=== PATIENT | male | born 1985 | race Caucasian/White ===

== ENCOUNTER 2021-12-28 14:43 | Observation (INO) | payer OTHER ==
[2021-12-28 15:12] LABS: Basophils # (A) 0.1 k/uL (0-0.2); Basophils % (A) 1 %; Eosinophils # (A) 0.2 k/uL (0-0.7); Eosinophils % (A) 2 %; HCT 44.2 % (39.0-53.0); HGB 15.2 gm/dL (13.0-17.5); Lymphocytes # (A) 2.2 k/uL (1.0-4.8); Lymphocytes % (A) 22 %; MCH 31.2 pg (25.0-35.0); MCHC 34.4 g/dL (31.0-37.0); MCV 90.7 fL (80.0-100.0); Mean Platelet Volume 8.5; Monocytes # (A) 0.3 k/uL (0-1.0); Monocytes % (A) 3 %; Neutrophils # (A) 6.9 k/uL (1.3-7.7); Neutrophils % (A) 71 %; Platelet Count 232 k/uL (150-450); RBC 4.88 m/uL (4.30-5.90); RDW 12.1 % (11.5-15.5); WBC 9.8 k/uL (3.8-10.6)
[2021-12-28 15:21] LABS: AST 43 U/L (17-59); African American GFR (CKD) >90 (>60 ml/min/1.73 sqM); Albumin 4.5 g/dL (3.5-5.0); Alkaline Phosphatase 64 U/L (38-126); Anion Gap 10 mmol/L; Blood Urea Nitrogen 10 mg/dL (9-20); Calcium 9.2 mg/dL (8.4-10.2); Carbon Dioxide 20 mmol/L (22-30); Chloride 101 mmol/L (98-107); Glucose 450 mg/dL (74-99); Non-African American GFR(CKD) >90 (>60 ml/min/1.73 sqM); Sodium 131 mmol/L (137-145); Total Bilirubin 1.5 mg/dL (0.2-1.3); Total Protein 7.1 g/dL (6.3-8.2)
[2021-12-28 15:27] LABS: ALT 34 U/L (4-49)
[2021-12-28 15:33] LABS: Partial Thromboplastin Time 22.1 sec (22.0-30.0); Prothrombin Time 10.6 sec (9.0-12.0)
[2021-12-28 15:35] LABS: Potassium 4.7 mmol/L (3.5-5.1)
--- NOTE | 2021-12-28 15:55 | XR ---
EXAMINATION TYPE: XR chest 2V DATE OF EXAM: 12/28/2021 COMPARISON: None HISTORY: 36-year-old male with chest pain TECHNIQUE: PA and lateral views FINDINGS: Heart normal size. Aorta and pulmonary vasculature within normal limits. Some strandy atelectasis at the left base. No consolidation or pleural effusion. IMPRESSION: No acute cardiopulmonary process.
[2021-12-28] MEDS ORDERED: MORPHINE SULFATE 4 MG/ML SYRINGE IVP STA (16:19)
[2021-12-28] MEDS ORDERED: SODIUM CHLORIDE 0.9% 1,000 ML IV ONE (16:39)
--- NOTE | 2021-12-28 17:13 | ED ---
Chest Pain HPI - General Chief Complaint: Chest Pain Stated Complaint: Chest pain Time Seen by Provider: 12/28/21 15:04 Source: patient, EMS Mode of arrival: EMS Limitations: no limitations - History of Present Illness Initial Comments: Patient is a 36-year-old male presenting with chief complaint of chest pain. Patient states symptoms started this afternoon, he was experiencing substernal chest pain as if someone was sitting on his chest, with some radiation of the neck and down the arm. He admits to nausea. 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 Patient states that since May he has not followed up with his beater engineer helper and has been noncompliant with his medications. Patient states he quit smoking a year ago. He has intermittent shortness of breath. Admits to headache. Denies fever, chills, cough, recent illness, abdominal pain. - Related Data Home Medications Medication Instructions Recorded Confirmed No Known Home Medications 12/28/21 12/28/21 Allergies Allergy/AdvReac Type Severity Reaction Status Date / Time No Known Allergies Allergy Verified 12/28/21 17:42 Review of Systems ROS Statement: Those systems with pertinent positive or pertinent negative responses have been documented in the HPI. ROS Other: All systems not noted in ROS Statement are negative. EKG Findings - EKG Comments: EKG Findings:: Sinus rhythm rate of 88. OK interval 156. QRS duration 87. Some repolarization disturbance is in leads II and III. no previous EKG for comparison. This EKG was promptly shown to and interpreted by my attending Dr. Venegas. Past Medical History Past Medical History: Myocardial Infarction ([place]), Osteoarthritis ([place]) Additional Past Medical History / Comment(s): DDD, History of Any Multi-Drug Resistant Organisms: None Reported Past Surgical History: Heart Catheterization With Stent Past Psychological History: No Psychological Hx Reported Smoking Status: Former smoker Past Alcohol Use History: Occasional Past Drug Use History: Marijuana General Exam Limitations: no limitations General appearance: alert, in no apparent distress Head exam: Present: atraumatic, normocephalic, normal inspection Eye exam: Present: normal appearance, EOMI. Absent: scleral icterus Neck exam: Present: normal inspection Respiratory exam: Present: normal lung sounds bilaterally. Absent: respiratory distress, wheezes, rales, rhonchi, stridor Cardiovascular Exam: Present: regular rate, normal rhythm, normal heart sounds. Absent: systolic murmur, diastolic murmur, rubs, gallop, clicks Neurological exam: Present: alert, oriented X3, CN II-XII intact Psychiatric exam: Present: normal affect, normal mood Skin exam: Present: warm, dry, intact, normal color. Absent: rash Course Vital Signs 12/28/21 12/28/21 12/28/21 14:51 15:35 17:21 Temperature 98.1 F Pulse Rate 86 97 78 Respiratory 18 18 18 Rate Blood Pressure 152/87 117/81 126/80 O2 Sat by Pulse 99 97 98 Oximetry Chest Pain [facility] Patient is a 36-year-old male presenting with chief complaint of chest pain that started today. He has history of 3 prior MIs and 5 stents placed. Pain is substernal, some radiation of the neck and down the arm, associated with nausea, vomiting, headache. Physical examination is unremarkable. Heart and lungs are clear to auscultation and no focal neurological deficits. Lab work shows sodium 131, glucose 450, and troponin is wnl. chest x-ray is negative for any acute process. On blood glucose recheck value is 233, patient is given 3 units of regular insulin. Urine is still pending at this time. Patient responded well to pain medication and Zofran. Given the patient's history and the nature of his pain, he'll be admitted for observation and repeat troponins. Cardiology will be consulted. I spoke with Dr. Bruner from [facility] who agreed to admit the patient. Patient was agreeable to this plan. I discussed this case with my attending Dr. Munguia. Disposition Clinical Impression: Chest pain Disposition: ADMITTED IP TO THIS [facility] Condition: Fair Time of Disposition: 17:13 Decision to Admit Reason: Admit from Decision Date: 12/28/21 Decision Time: 17:13
[2021-12-28] MEDS ORDERED: ONDANSETRON 4 MG/2 ML VIAL IVP STA (17:16)
[2021-12-28] MEDS ORDERED: NALOXONE 0.4 MG/ML 1 ML VIAL IV PRN (17:39)
[2021-12-28] MEDS ORDERED: MORPHINE SULFATE 4 MG/ML SYRINGE IV PRN (17:39)
[2021-12-28] MEDS ORDERED: ONDANSETRON 4 MG/2 ML VIAL IVP PRN (17:39)
[2021-12-28] MEDS ORDERED: INSULIN REGULAR 100 UNIT/ML VIAL (IV) IV ONE ×2 (17:57→18:11)
[2021-12-28 18:10] LABS: Glucose,Whole Blood 233 mg/dL (70-110)
[2021-12-28] MEDS: SODIUM CHLORIDE 0.9% 1,000 ML IV SCH (18:13)
[2021-12-28 19:18] LABS: Appearance,Urine Clear (Clear); Bilirubin,Urine Negative (Negative); Blood,Urine Negative (Negative); Color,Urine Light Yellow; Glucose,Urine (UA) 4+ (Negative); Ketones,Urine 1+ (Negative); Leukocyte Esterase,Urine Negative (Negative); Nitrite,Urine Negative (Negative); Protein,Urine Negative (Negative); Specific Gravity,Urine 1.039 (1.001-1.035); Urobilinogen,Urine <2.0 mg/dL (<2.0)
[2021-12-28] MEDS: KETOROLAC 15 MG/ML 1 ML VIAL IVP SCH (20:05)
[2021-12-28 20:23] LABS: Glucose,Whole Blood 362 mg/dL (70-110)
[2021-12-28 22:52] LABS: Glucose,Whole Blood 291 mg/dL (70-110)
[2021-12-28] MEDS: INSULIN ASPART (NovoLOG) 100 UNIT/ML VIAL SQ SCH (22:55)
--- NOTE | 2021-12-29 01:56 | P.HPIM ---
History of Present Illness H&P Date: 12/28/21 Chief Complaint: Chest pain 36-year-old male with coronary artery disease status post multiple stents Patient comes in complaining of retrosternal chest pain radiating to the left arm described it as pressure-like 10 out of 10 in severity started while he was working. 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 He suddenly had this chest pressure associated with feeling nauseous and dizzy and profusely sweating with headaches and shortness of breath. He immediately recognized the symptoms and decided to come in for evaluation as he had several heart attacks in the past requiring multiple stents. He recently moved from [facility] to [place] on about 7 months ago since then he has lost follow-up with his doctors and has not been able to get refills on his medications he has been taking nothing he's been told in the past that he has prediabetes however he is currently not taking any Plavix or aspirin this most recent stents has been over a 1 year ago. He currently feels comfortable and relaxed laying down in bed denies any chest pain or trouble breathing he also seems to be diabetic from his blood test as his blood sugar is higher than 200 however patient is not ready to commit to a diet of consistent carbohydrate. He has quit smoking over a year ago and denies any heavy alcohol or illicit d rugs. In the ED EKG showed normal sinus rhythm and chest x-ray showed no acute pathology EKG showed no acute ST changes Blood work overall unremarkable troponins negative Patient denies any similar episodes recently he reports that he tolerates his pre-while with no limitations due to dyspnea or chest pain Review of Systems Pertinent positives as noted in HPI. All other systems were reviewed and are negative Past Medical History Past Medical History: Myocardial Infarction ([place]), Osteoarthritis ([place]) Additional Past Medical History / Comment(s): DDD, History of Any Multi-Drug Resistant Organisms: None Reported Past Surgical History: Heart Catheterization With Stent Past Psychological History: No Psychological Hx Reported Smoking Status: Former smoker Past Alcohol Use History: Occasional Past Drug Use History: Marijuana - Past Family History Family Family Medical History: No Reported History Medications and Allergies Home Medications Medication Instructions Recorded Confirmed Type No Known Home Medications 12/28/21 12/28/21 History Allergies Allergy/AdvReac Type Severity Reaction Status Date / Time No Known Allergies Allergy Verified 12/28/21 17:42 Physical Exam Vitals: Vital Signs Temp Pulse Pulse Resp BP BP Pulse Ox 12/28/21 18:56 97.5 F L 67 16 137/84 100 12/28/21 17:21 78 18 126/80 98 12/28/21 15:35 97 18 117/81 97 12/28/21 14:51 98.1 F 86 18 152/87 99 Intake and Output 12/28/21 12/28/21 12/28/21 06:59 14:59 22:59 Other: Weight 99.337 kg Constitutional: No acute distress, conversant, pleasant Eyes: Anicteric sclerae, moist conjunctiva, Pupils equal round reactive to light ENMT: NC/AT Oropharynx clear, no erythema, or exudates Neck: Supple, FROM, no masses, or JVD No carotid bruits No thyromegaly Lungs: Clear to auscultation Clear to percussion Normal respiratory effort, no accessory muscle use Cardiovascular: Heart regular in rate and rhythm, No murmurs, gallops, or rubs No peripheral edema Abdominal: Soft Nontender, no guarding, rebound or rigidity Abdomen moving with respiration Normoactive bowel sounds No hepatomegaly, No splenomegaly No palpable mass No abdominal wall hernia noted Skin: Normal temperature, tone, texture, turgor No induration No subcutaneous nodules No rash, lesions No ulcers Extremities: No digital cyanosis No clubbing Pedal pulses intact and symmetrical Radial pulses intact and symmetrical No calf tenderness Psychiatric: Alert and oriented to person, place and time Appropriate affect fair judgement Neuro Muscles Strength 5/5 in all 4 extremities Sensation to light touch grossly present throughout Cranial nerves II-XII grossly intact No focal sensory deficits Lymphatics: no palpable cervical or supraclavicular , or inguinal lymph nodes Results CBC & Chem 7: 12/28/21 15:04 12/28/21 15:04 Labs: Abnormal Lab Results - Last 24 Hours (Table) 12/28/21 12/28/21 12/28/21 Range/Units 15:04 18:09 18:18 Sodium 131 L (137-145) mmol/L Carbon Dioxide 20 L (22-30) mmol/L Creatinine 0.55 L (0.66-1.25) mg/dL Glucose 450 H (74-99) mg/dL POC Glucose (mg/dL) 233 H (70-110) mg/dL Total Bilirubin 1.5 H (0.2-1.3) mg/dL Ur Specific [place] 1.039 H (1.001-1.035) Urine Glucose (UA) 4+ H (Negative) Urine Ketones 1+ H (Negative) 12/28/21 Range/Units 20:22 Sodium (137-145) mmol/L Carbon Dioxide (22-30) mmol/L Creatinine (0.66-1.25) mg/dL Glucose (74-99) mg/dL POC Glucose (mg/dL) 362 H (70-110) mg/dL Total Bilirubin (0.2-1.3) mg/dL Ur Specific [place] (1.001-1.035) Urine Glucose (UA) (Negative) Urine Ketones (Negative) Assessment and Plan Assessment: atypical chest pain rule out ACS EKG no acute changes CXR no acute pathology trops negative X2 quality assurance monitor monitor vital signs ASA, statin cardiology consult A1c, lipid panel , TSH pain control Newly diagnosed diabetes Follow-up A1c Initiate insulin sliding scale Patient educated regarding consistent carbohydrate diet DVT prophylaxis heparin subcu 3 times a day Full code Anticipated length of stay less than 2 midnights
[2021-12-29] MEDS: KETOROLAC 15 MG/ML 1 ML VIAL IVP SCH ×5 (02:00→23:15)
[2021-12-29] MEDS: SODIUM CHLORIDE 0.9% 1,000 ML IV SCH ×5 (04:27→23:11)
[2021-12-29 07:13] LABS: Glucose,Whole Blood 251 mg/dL (70-110)
[2021-12-29] MEDS ORDERED: INSULIN ASPART (NovoLOG) 100 UNIT/ML VIAL SQ SCH (07:30)
[2021-12-29] MEDS ORDERED: ATORVASTATIN 80 MG TAB PO STA (08:14)
[2021-12-29] MEDS ORDERED: ASPIRIN 325 MG TAB PO STA (08:14)
[2021-12-29] MEDS ORDERED: ALPRAZolam 0.5 MG TAB PO PRN (08:14)
[2021-12-29] MEDS ORDERED: ALPRAZolam 0.25 MG TAB PO PRN (08:14)
[2021-12-29] MEDS ORDERED: NITROGLYCERIN SL TABS 0.4 MG TAB SUBLINGUAL PRN (08:14)
[2021-12-29] MEDS ORDERED: ASPIRIN 325 MG TAB PO SCH (09:00)
[2021-12-29 09:10] LABS: Basophils # (A) 0.04 X 10*3/uL (0.00-0.10); Basophils % (A) 0.5 %; Eosinophils # (A) 0.25 X 10*3/uL (0.04-0.35); Eosinophils % (A) 3.2 %; HCT 41.5 % (39.6-50.0); HGB 14.1 g/dL (13.0-17.0); Immature Grans, Automated 0.3 %; Lymphocytes # (A) 3.18 X 10*3/uL (0.90-5.00); MCH 29.7 pg (27.0-32.0); MCV 87.6 fL (80.0-97.0); Mean Platelet Volume 10.8 fL (9.5-12.2); Monocytes # (A) 0.61 X 10*3/uL (0.20-1.00); Monocytes % (A) 7.9 %; NRBC Per 100 WBC 0 /100 WBCS (0.0-0.0); Neutrophils # (A) 3.65 X 10*3/uL (1.80-7.70); Neutrophils % (A) 47.1 %; Platelet Count 205 X 10*3/uL (140-440); RBC 4.74 X 10*6/uL (4.40-5.60); RDW 11.8 % (11.5-14.5); WBC 7.75 X 10*3/uL (4.50-10.00)
[2021-12-29 09:17] LABS: African American GFR (CKD) 138.7 (60.0-200.0); Albumin 3.6 g/dL (3.8-4.9); Albumin/Globulin Ratio 1.89 (1.60-3.17); Anion Gap 7.9 mmol/L (10.00-18.00); BUN/Creat Ratio 13.43 Ratio (12.00-20.00); Blood Urea Nitrogen 9.4 mg/dL (9.0-27.0); Calcium 8.6 mg/dL (8.7-10.3); Carbon Dioxide 27.1 mmol/L (20.0-27.5); Globulin 1.9 g/dL (1.6-3.3); Non-African American GFR(CKD) 119.7 (60.0-200.0); Potassium 4.4 mmol/L (3.5-5.5); Total Bilirubin 0.8 mg/dL (0.30-1.20); Total Protein 5.5 g/dL (6.2-8.2)
[2021-12-29] MEDS: ISOSORBIDE MONONITRATE ER 30 MG TAB.ER.24H PO SCH (09:20)
[2021-12-29] MEDS: INSULIN ASPART (NovoLOG) 100 UNIT/ML VIAL SQ SCH ×3 (09:20→18:03)
[2021-12-29] MEDS: SODIUM CHLORIDE 0.9% 1,000 ML in EMPTY BAG 1 BAG IV SCH ×2 (09:21→19:47)
[2021-12-29] MEDS: HEPARIN SODIUM,PORCINE/PF 5,000 UNIT/0.5 ML SYRINGE SQ SCH ×3 (09:21→23:15)
[2021-12-29] MEDS: ATORVASTATIN 40 MG TAB PO SCH (09:21)
[2021-12-29] MEDS ORDERED: HEPARIN SODIUM 1,000 UN/ML (10ML VL) ONE (10:23)
[2021-12-29] MEDS ORDERED: VERAPAMIL 2.5 MG/ML 2 ML AMP ONE (10:23)
[2021-12-29] MEDS ORDERED: fentaNYL (PF) 50 MCG/ML 2 ML AMP ONE (10:30)
[2021-12-29] MEDS ORDERED: MIDAZOLAM 2 MG/2 ML VIAL IV ONE (10:52)
[2021-12-29] MEDS ORDERED: fentaNYL (PF) 50 MCG/ML 2 ML AMP IV ONE (10:52)
[2021-12-29] MEDS ORDERED: IV FLUID CONTINUATION 700 ML IV ONE (10:52)
[2021-12-29] MEDS ORDERED: LIDOCAINE 1% INJ 10MG/ML (5 ML VIAL-PF) SQ ONE (10:53)
[2021-12-29] MEDS ORDERED: VERAPAMIL SYRINGE (5 MG/10 ML) INTRAARTER ONE (10:54)
[2021-12-29] MEDS ORDERED: HEPARIN SODIUM 1,000 UN/ML (10ML VL) IV ONE (10:57)
[2021-12-29] MEDS ORDERED: IOPAMIDOL-370 125ML BTL INJ ONE (11:28)
[2021-12-29] MEDS ORDERED: RX INFO: IV CONTRAST WAS GIVEN 1 EACH MISC MISCELLANE PRN (11:30)
[2021-12-29 11:53] LABS: Glucose,Whole Blood 224 mg/dL (70-110)
--- NOTE | 2021-12-29 11:55 | CA ---
Transthoracic Echo Report Name: Omero Victoria Age: 36 Gender: M : 1985 Exam Date: 12/29/2021 08:52 Exam Location: [facility] Ht (in): 72 Wt (lb): 219 Ordering Physician: Inocencio Mackey MD ([id number]) Attending/Referring Phys: Key JOHNSON Desk Editor Lila Barrientos RDCS Procedure CPT: Indications: Chest Pain Cardiac Hx: Technical Quality: Fair Contrast 1: Total Dose (mL): Contrast 2: Total Dose (mL): MEASUREMENTS (Male / Female) Normal Values 2D ECHO LV Diastolic Diameter PLAX 4.6 cm 4.2 - 5.9 / 3.9 - 5.3 cm LV Systolic Diameter PLAX 3.0 cm IVS Diastolic Thickness 1.5 cm 0.6 - 1.0 / 0.6 - 0.9 cm LVPW Diastolic Thickness 1.6 cm 0.6 - 1.0 / 0.6 - 0.9 cm LV Relative Wall Thickness 0.7 RV Internal Dim ED PLAX 3.5 cm LA Volume 58.3 cm??? 18 - 58 / 22 - 52 cm??? M-MODE Aortic Root Diameter MM 2.9 cm LA Systolic Diameter MM 4.4 cm LA Ao Ratio MM 1.5 AV Cusp Separation MM 2.2 cm DOPPLER AV Peak Velocity 131.5 cm/s AV Peak Gradient 6.9 mmHg LVOT Peak Velocity 90.1 cm/s LVOT Peak Gradient 3.2 mmHg MV Area PHT 2.8 cm??? Mitral E Point Velocity 100.5 cm/s Mitral A Point Velocity 53.5 cm/s Mitral E to A Ratio 1.9 MV Deceleration Time 270.8 ms MV E' Velocity 12.0 cm/s Mitral E to MV E' Ratio 8.4 TR Peak Velocity 237.3 cm/s TR Peak Gradient 22.5 mmHg Right Ventricular Systolic Press 27.5 mmHg FINDINGS Left Ventricle Moderately increased left ventricular wall thickness. Normal left ventricular systolic function with no obvious regional wall motion abnormalities. Left ventricular ejection fraction is estimated at 55-60 %. Normal left ventricular diastolic filling pattern. Right Ventricle Mild right ventricular dilatation. Right ventricular systolic pressure within normal limits. Right Atrium Normal right atrial size. Left Atrium Normal left atrial size. No evidence for an atrial septal defect. Mitral Valve Structurally normal mitral valve. No mitral stenosis, regurgitation or prolapse. Aortic Valve Trileaflet aortic valve. No aortic valve stenosis or regurgitation. Tricuspid Valve Structurally normal tricuspid valve. Mild tricuspid regurgitation. Pulmonic Valve Structurally normal pulmonic valve. Trace pulmonic regurgitation. Pericardium No pericardial effusion. Aorta Normal size aortic root and proximal ascending aorta. CONCLUSIONS Concentric left ventricular hypertrophy with normal LV systolic function mild tricuspid regurgitation Previewed by: Dr. Inocencio Mackey MD (Electronically Signed) Final Date: 29 December 2021 11:54
--- NOTE | 2021-12-29 12:58 | CC ---
CARDIAC CATHETERIZATION REPORT INDICATION: Unstable angina. PROCEDURE NOTE: After obtaining informed consent, left heart catheterization and coronary angiogram were performed via the right radial artery using standard Mai catheters. Right coronary artery was engaged using a size 4 Mai catheter. Left ventricular hemodynamics were obtained by the right Mai. The patient tolerated the procedure well without any obvious immediate complications. The patient received moderate conscious sedation. Total sedation time was 27 minutes. After using a micropuncture needle, right radial artery access was obtained by Seldinger technique, and catheters and wire were manipulated into the ascending aorta under fluoroscopic guidance. The catheters were exchanged uneventfully. The patient received 5 mg of verapamil and 5000 units of IV heparin per protocol. FINDINGS: HEMODYNAMICS: Left ventricular end-diastolic dimension 5 mm. There is no significant gradient across the aortic valve. LEFT VENTRICULOGRAM: Not performed. ANGIOGRAPHIC DATA: RIGHT CORONARY ARTERY: Right coronary artery is a large dominant vessel. The previously stented segment in the proximal to mid RCA appears patent. The PDA has a focal 70-80 percent stenosis. LEFT MAIN: Left main coronary artery is a normal-sized vessel and is free of stenosis. Divides into left anterior descending coronary artery and circumflex coronary artery. LEFT ANTERIOR DESCENDING CORONARY ARTERY: LAD was previously stented and the stent appears patent. There is a moderate area of stenosis in the mid LAD. CIRCUMFLEX CORONARY ARTERY: Circumflex coronary artery and its branches are free of significant stenosis. CONCLUSIONS: Patent stents in the right coronary artery and LAD with a 70% to 80% stenosis involving PDA and a moderate area of stenosis involving mid LAD. PLAN: I will review angiographic data with Dr. Head the on-call professor of biological sciences, and see if he should perform angioplasty of the PDA. MMODL / IJN: [id number] /
[2021-12-29 16:51] LABS: Glucose,Whole Blood 270 mg/dL (70-110)
--- NOTE | 2021-12-29 16:53 | P.PN ---
Subjective Progress Note Date: 12/29/21 Patient currently denying any chest pain. 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 Patient states he will follow-up with our scrap metal processing worker group. He is also looking for recommendations for PCP. Patient states that he has other family members with diabetes so knows how to administer insulin to himself. Patient states that he is able to tolerate insulin well. Patient does not believe that he'll be able to tolerate other hypoglycemic oral agents. 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 - Moving all 4 extremities spontaneously Psych - Calm and cooperative - Labs CBC & Chem 7: 12/29/21 06:29 12/29/21 06:29 Labs: Abnormal Lab Results - Last 24 Hours (Table) 12/28/21 12/28/21 12/28/21 Range/Units 18:09 18:18 20:22 Anion Gap (10.00-18.00) mmol/L Glucose (70-110) mg/dL POC Glucose (mg/dL) 233 H 362 H (70-110) mg/dL Hemoglobin A1c (0.0-6.0) % Calcium (8.7-10.3) mg/dL AST (14-35) U/L Total Protein (6.2-8.2) g/dL Albumin (3.8-4.9) g/dL Ur Specific [place] 1.039 H (1.001-1.035) Urine Glucose (UA) 4+ H (Negative) Urine Ketones 1+ H (Negative) 12/28/21 12/29/21 12/29/21 Range/Units 22:49 : 06:29 Anion Gap 7.90 L (10.00-18.00) mmol/L Glucose 225 H (70-110) mg/dL POC Glucose (mg/dL) 291 H (70-110) mg/dL Hemoglobin A1c 10.9 H (0.0-6.0) % Calcium 8.6 L (8.7-10.3) mg/dL AST 13 L (14-35) U/L Total Protein 5.5 L (6.2-8.2) g/dL Albumin 3.6 L (3.8-4.9) g/dL Ur Specific [place] (1.001-1.035) Urine Glucose (UA) (Negative) Urine Ketones (Negative) 12/29/21 12/29/21 Range/Units 07:11 11:51 Anion Gap (10.00-18.00) mmol/L Glucose (70-110) mg/dL POC Glucose (mg/dL) 251 H 224 H (70-110) mg/dL Hemoglobin A1c (0.0-6.0) % Calcium (8.7-10.3) mg/dL AST (14-35) U/L Total Protein (6.2-8.2) g/dL Albumin (3.8-4.9) g/dL Ur Specific [place] (1.001-1.035) Urine Glucose (UA) (Negative) Urine Ketones (Negative) Assessment and Plan Assessment: #Chest pain -Patient has history of HI with stents in the past -Status post left heart catheterization that showed 70-80% stenosis in the PAD -Cardiology to discuss case with fire crew worker regarding PCI -Patient noncompliant with his medications and had stopped taking aspirin and Plavix. Patient states that has been more than a year ago since his stent was placed. -Patient does not follow up with a scrap metal processing worker or PCP -Patient currently denying chest pain -Resume aspirin -Resume high intensity statin -Resume Imdur -Echocardiogram shows normal LV function and mild tricuspid regurg #Diabetes mellitus -Hemoglobin A1c is 10.9 -We'll start patient on 20 units Levemir at nighttime and 8 units for meal -Titrated insulin for better control -On discharge will check with pharmacy for coverage Anticipated discharge: Next 24hrs if cleared by cardiology DVT prophylaxis: Subcu heparin
--- NOTE | 2021-12-29 17:55 | CONS ---
GLENN Jamil is a 36-year-old gentleman with history of coronary artery disease status post multiple prior angioplasties, who used to live in [facility], has recently moved back to [place]. He is not taking any medications. He comes into hospital complaining of chest pain. He states that he was at work and developed precordial chest pressure, moderate tissue in the precordial area that radiated to left arm and up to his jaw. He came to the ER, received nitro and became pain-free. EKG shows sinus rhythm, normal axis, normal intervals. Cardiac enzymes have been negative. His blood sugars were extremely elevated. The patient has been very noncompliant with therapy. PAST MEDICAL HISTORY: Significant for CAD, status post multi-vessel angioplasty. MEDICATIONS: None. ALLERGIES: None. FAMILY HISTORY: Significant for premature coronary artery disease. SOCIAL HISTORY: Significant for smoking. There is no history of EtOH abuse or drug abuse. REVIEW OF SYSTEMS: HEENT is unremarkable. CARDIAC as described above. RESPIRATORY negative. GI negative. negative. ALLERGY none. SKIN negative. MUSCULOSKELETAL: Negative. ENDOCRINE negative. DERM negative. ONCOLOGICAL negative. HOTEL OR MOTEL RECEPTIONIST negative. EXAM: Comfortable at rest. Vital signs are stable. There is no jugular venous distention. Carotid upstroke is normal. There is no bruit. CHEST exam reveals good air entry bilaterally. HEART exam reveals first and second heart sounds. No gallop. No murmur. No rub. ABDOMEN is soft, nontender. Examination of EXTREMITIES did not reveal edema. Peripheral pulses are felt. ASSESSMENT: Unstable angina in a patient with known multivessel coronary artery disease. PLAN: I will perform cardiac catheterization on him and obtain a 2D echo. MMODL / IJN: [id number] /
[2021-12-29] MEDS ORDERED: INSULIN DETEMIR (LEVEMIR) 100 UNIT/ML SYR SQ SCH (21:00)
[2021-12-29 21:40] LABS: Glucose,Whole Blood 303 mg/dL (70-110)
[2021-12-30] MEDS ORDERED: MELATONIN 3 MG TABLET PO ONE (00:16)
[2021-12-30] MEDS: SODIUM CHLORIDE 0.9% 1,000 ML IV SCH ×2 (00:18→09:22)
[2021-12-30] MEDS: SODIUM CHLORIDE 0.9% 1,000 ML in EMPTY BAG 1 BAG IV SCH (05:49)
[2021-12-30] MEDS: KETOROLAC 15 MG/ML 1 ML VIAL IVP SCH ×2 (05:50→13:02)
[2021-12-30] MEDS ORDERED: HEPARIN SODIUM,PORCINE 2,500 UNIT in SODIUM CHLORIDE 0.9% 250 ML IRRIGATION PRN (07:00)
[2021-12-30] MEDS ORDERED: HEPARIN SODIUM,PORCINE 10,000 UNIT in SODIUM CHLORIDE 0.9% 1,000 ML IRRIGATION PRN (07:00)
[2021-12-30 07:45] LABS: Glucose,Whole Blood 216 mg/dL (70-110)
[2021-12-30] MEDS ORDERED: ASPIRIN 81 MG PO SCH (09:00)
[2021-12-30] MEDS: INSULIN ASPART (NovoLOG) 100 UNIT/ML VIAL SQ SCH (09:18)
[2021-12-30] MEDS: ISOSORBIDE MONONITRATE ER 30 MG TAB.ER.24H PO SCH (09:18)
[2021-12-30] MEDS: ATORVASTATIN 40 MG TAB PO SCH (09:18)
[2021-12-30] MEDS: HEPARIN SODIUM,PORCINE/PF 5,000 UNIT/0.5 ML SYRINGE SQ SCH (09:22)
--- NOTE | 2021-12-30 09:39 | P.PN ---
Subjective Progress Note Date: 12/30/21 HISTORY OF PRESENT ILLNESS: Patient is status post cardiac catheterization with Dr. Mackey. Patient was found to have patent stents in the RCA and LAD with 70-80% stenosis involving t he PDA and a moderate area of stenosis involving the mid LAD. Films were reviewed with the on-call interventional list and medical management was recommended. Patient denies chest pain or pressure. Denies shortness of breath. Vital signs are stable. PHYSICAL EXAM: VITAL SIGNS: Reviewed. GENERAL: Well-developed in no acute distress. NECK: Supple. No JVD or thyromegaly LUNGS: Respirations even and unlabored. Lungs essentially clear to auscultation bilaterally. HEART: Regular rate and rhythm. S1 and S2 heard. EXTREMITIES: Normal range of motion. No clubbing or cyanosis. Peripheral pulses intact. No lower extremity edema ASSESSMENT: Chest pain, status post cardiac catheterization with results as above Coronary artery disease with previous stenting Medication noncompliance PLAN: Continue current cardiac medications Patient may be discharged home today from a cardiac standpoint Nurse practitioner note has been reviewed by physician. Signing provider agrees with the documented findings, assessment, and plan of care. Objective - Vital Signs Vital signs: Vital Signs Temp 97.8 F 12/30/21 07:00 Pulse 65 12/30/21 07:00 Resp 16 12/30/21 07:00 BP 145/80 12/30/21 07:00 Pulse Ox 98 12/30/21 07:00 FiO2 Intake & Output 12/29/21 12/30/21 12/30/21 18:59 06:59 18:59 Intake Total 440 222 Output Total 700 1200 Balance -260 -1200 222 Intake: IV 200 Oral 240 222 Output: Urine 700 1200 Other: # Voids 1 1 - Labs CBC & Chem 7: 12/29/21 06:29 12/29/21 06:29 Labs: Abnormal Lab Results - Last 24 Hours (Table) 12/29/21 12/29/21 12/29/21 Range/Units 11:51 16:40 21:38 POC Glucose (mg/dL) 224 H 270 H 303 H (70-110) mg/dL 12/30/21 Range/Units 07:44 POC Glucose (mg/dL) 216 H (70-110) mg/dL
[2021-12-30] MEDS ORDERED: ACETAMINOPHEN TAB 325 MG TAB PO PRN (11:11)
[2021-12-30] MEDS ORDERED: INSULIN ASPART (NovoLOG) 100 UNIT/ML VIAL SQ SCH (12:30)
[2021-12-30 12:32] LABS: Glucose,Whole Blood 166 mg/dL (70-110)
[2021-12-30 14:43] VITALS: BMI 29.7
--- NOTE | 2021-12-30 14:48 | P.DS ---
Providers Date of admission: 12/28/21 17:12 Expected date of discharge: 12/30/21 Attending physician: Lamont Olivas MD Primary care physician: Stated None Hospital Course: Discharge Diagnosis: Chest pain Coronary artery disease status post multiple stents Diabetes Obesity Hospital Course: Patient is a 36-year-old male with a past medical history of coronary artery disease status post multiple stents who presents to the ED with chest pain. Patient had a left heart catheterization done that showed patent stents in the RCA and LAD and 70-80% stenosis involving the PDA and a moderate area of stenosis involving the mid LAD. The case was discussed with the on-call spa manager who recommended medical management. Patient was started on aspirin and Lipitor and Imdur by cardiology. The following day patient denied any chest pain. He was cleared for discharge by cardiology. Patient also reports having a history of diabetes. He states that he has not been on any meds because he has no PCP to refill them. He also states that he cannot tolerate oral diabetic meds. Patient is requesting insulin. Patient's hemoglobin was greater than 10.9 so qualifies for insulin. I started the patient on long-acting insulin 20 units at bedtime and short acting insulin 12 units before each meal. I counseled patient on hypoglycemia. Patient told to get a PCP to follow-up for refills as well as diabetic management. CM arranged for glucometer. I also checked with patient's pharmacy and his insurance covered the insulin. Patient also given referral to see our mental health assistant. Patient seen and examined at bedside.[] Vital signs reviewed and stable. General: [non toxic], [no distress], [appears at stated age] Derm: [warm], [dry] Head: [atraumatic], [normocephalic], [symmetric] Eyes: [EOMI], [no lid lag], [anicteric sclera] Mouth: [no lip lesion], [mucus membranes moist] Cardiovascular: [S1S2 reg], [no murmur], [positive posterior tibial pulse bilateral], Lungs: [CTA bilateral], [no rhonchi, no rales] , [no accessory muscle use] Abdominal: [soft], [ nontender to palpation], [no guarding], [no appreciable organomegaly] Ext: [no gross muscle atrophy], [no edema], [no contractures] Neuro: [ CN II-XI grossly intact], [no focal neuro deficits] Psych: [Alert], [oriented], [appropriate affect] A total of [33] minutes of time were spent preparing this complex discharge summary . Patient Condition at Discharge: Fair Plan - Discharge Summary Discharge Rx Participant: No New Discharge Prescriptions: New Insulin Aspart 12 units SQ AC-TID #100 ml Aspirin 81 mg PO DAILY 30 Days #30 tab Isosorbide Mononitrate ER [Imdur] 30 mg PO DAILY 30 Days #30 tab Atorvastatin [Lipitor] 40 mg PO DAILY 30 Days #30 tab Insulin Detemir (Levemir) [Levemir] 20 unit SQ HS 30 Days #100 ml Discharge Medication List Aspirin 81 mg PO DAILY 30 Days #30 tab 12/30/21 [Rx] Atorvastatin [Lipitor] 40 mg PO DAILY 30 Days #30 tab 12/30/21 [Rx] Insulin Aspart 12 units SQ AC-TID #100 ml 12/30/21 [Rx] Insulin Detemir (Levemir) [Levemir] 20 unit SQ HS 30 Days #100 ml 12/30/21 [Rx] Isosorbide Mononitrate ER [Imdur] 30 mg PO DAILY 30 Days #30 tab 12/30/21 [Rx] Follow up Appointment(s)/Referral(s): None,Stated [Primary Care Provider] - 1-2 days Inocencio Mackey MD [STAFF PHYSICIAN] - 1 Week (Follow up with Dr. Mackey for a Site Check in one week. ) Activity/Diet/Wound Care/Special Instructions: [facility] can be reached at [phone] for you blood sugar testing supplies. Discharge/Stand Alone Forms: Personal Music Agent Discharge Disposition: HOME SELF-CARE
[2021-12-30 16:18] VITALS: BP 127/73; PULSE 77; RESP 18; TEMP 98
== END 2021-12-30 16:30 | disposition home or self-care (01) ==
LOC: EC 14:43 → 6NMEDSUR 17:12
PROVIDERS: ADMIT Internal Medicine; ATTEND Internal Medicine
DX: R07.89 Other chest pain (principal); E11.65 Type 2 diabetes mellitus with hyperglycemia; I25.10 Atherosclerotic heart disease of native coronary artery without angina pectoris; I07.1 Rheumatic tricuspid insufficiency; I25.2 Old myocardial infarction; M19.90 Unspecified osteoarthritis, unspecified site; E66.9 Obesity, unspecified; Z68.29 Body mass index [BMI] 29.0-29.9, adult; Z91.14 Patient's other noncompliance with medication regimen; Z95.5 Presence of coronary angioplasty implant and graft; Z87.891 Personal history of nicotine dependence; Z82.49 Family history of ischemic heart disease and other diseases of the circulatory system; Z83.3 Family history of diabetes mellitus
CPT/HCPCS: 96372; 96375 ×2; 96361; 96374; 99285; 36415; 93005; 93306; 93458; 80053 ×2; 83735; 84484; 85025 ×2; 85610; 85730; 81003; 83036; 71046; G0378 ×3; C1769; C1894; J2250; J2270; J2405; J2001; J3010; J1644 ×2; J1885 ×2; Q9967

== ENCOUNTER 2022-01-15 13:47 | Emergency (ER) | payer OTHER ==
[2022-01-15 13:53] VITALS: RESP 18
[2022-01-15] MEDS ORDERED: SODIUM CHLORIDE 0.9% 1,000 ML IV STA (14:15)
[2022-01-15] MEDS ORDERED: ONDANSETRON 4 MG/2 ML VIAL IVP STA (14:15)
[2022-01-15] MEDS ORDERED: KETOROLAC 15 MG/ML 1 ML VIAL IVP STA (14:22)
[2022-01-15] MEDS ORDERED: diphenhydrAMINE 50 MG/ML 1 ML VIAL IVP STA (14:22)
--- NOTE | 2022-01-15 14:22 | ED ---
General Adult HPI - General Chief complaint: Dizziness Stated complaint: Chest pain Time Seen by Provider: 01/15/22 14:09 Source: patient Mode of arrival: wheelchair Limitations: no limitations - History of Present Illness Initial comments: Dictation was produced using [employer] dictation software. please excuse any grammatical, word or spelling errors. Chief Complaint: 36-year-old male presents emergency department for dizziness, diaphoresis, diarrhea and tremors History of Present Illness: An is a 36-year-old male with extensive medical history. Patient has multiple coronary artery stents. He is had known coronary artery disease since the age of 25. Patient states that today he has been having nausea, diarrhea and dizziness. Patient also reports diaphoresis. We'll last 2 hours his symptoms have been persistent. Patient denies any chest pain. Patient is not sure what's going on. His symptoms remind him of when he was diagnosed with a heart attack in the past except during those time he has chest pressure with radiation down the extremity. Patient denies any vomiting. He states that he's been having these episodes frequently. The ROS documented in this emergency department record has been reviewed and confirmed by me. Those systems with pertinent positive or negative responses have been documented in the HPI. All other systems are other negative and/or noncontributory. PHYSICAL EXAM: General Impression: Alert and oriented x3, not in acute distress HEENT: Normocephalic atraumatic, extra-ocular movements intact, pupils equal and reactive to light bilaterally, mucous membranes moist. Cardiovascular: Heart regular rate and rhythm Chest: Able to complete full sentences, no retractions, no tachypnea Abdomen: abdomen soft, non-tender, non-distended, no organomegaly Musculoskeletal: Pulses present and equal in all extremities, no peripheral edema Motor: no focal deficits noted Neurological: CN II-XII grossly intact, no focal motor or sensory deficits noted Skin: Intact with no visualized rashes Psych: Normal affect and mood ED course: 36-year-old male presents to the emergency department for nausea, diarrhea, dizziness and diaphoresis. He denies any chest pain, shortness of breath, epigastric pain. Patient has extensive cardiac history. Signs upon arrival are within acceptable limits. EKG shows no signs of ischemia or infarction. Does have benign early repolarization that appears to be comparable to most recent EKG from December 28 this year. Physical examination is benign. Patient is well-appearing watching TV and eating with no acute issues. Patient reevaluated at bedside at 4:00 PM patient complaining of acute headache. Patient states he normally does not get headaches however had a headache the last one was diagnosed with myocardial infarction. Patient denies any focal neurologic deficits. Patient was given headache cocktail with slight improvement of his symptoms.Computed tomography scan of the brain is unremarkable. Patient reevaluated bedside at 5:10 PM found to be in stable medical condition. Patient states that he feels significantly improved. Patient continues to deny any symptoms remotely associated with ACS. He reports significant improvement of his nausea. He is not diaphoretic at the bedside. He is well-appearing watching TV in no acute distress. He ate a sandwich and had some pop at the bedside. Disposition options were discussed. Symptoms are very unlikely to be acute coronary syndrome given that patient does not have any ACS symptoms. Nonetheless return precautions discussed. Patient is agreeable with discharge. He was notified of his catheterization results from last month. EKG interpretation: Ventricular rate 76, sinus rhythm,. 150, Q 87, QTC 414. No SD prolongation, no QTC prolongation, no ST or T-wave changes noted. EKG compared to 12/28/2021 showing no changes. Overall, this EKG is unremarkable - Related Data Previous Rx's Medication Instructions Recorded Aspirin 81 mg PO DAILY 30 Days #30 tab 12/30/21 Atorvastatin [Lipitor] 40 mg PO DAILY 30 Days #30 tab 12/30/21 Insulin Aspart 12 units SQ AC-TID #100 ml 12/30/21 Insulin Detemir (Levemir) [Levemir] 20 unit SQ HS 30 Days #100 ml 12/30/21 Isosorbide Mononitrate ER [Imdur] 30 mg PO DAILY 30 Days #30 tab 12/30/21 Allergies Allergy/AdvReac Type Severity Reaction Status Date / Time No Known Allergies Allergy Verified 01/15/22 16:28 Review of Systems ROS Statement: Those systems with pertinent positive or pertinent negative responses have been documented in the HPI. ROS Other: All systems not noted in ROS Statement are negative. Past Medical History Past Medical History: Myocardial Infarction ([place]), Osteoarthritis ([place]) Additional Past Medical History / Comment(s): DDD, Last Myocardial Infarction Date:: N/A History of Any Multi-Drug Resistant Organisms: None Reported Past Surgical History: Heart Catheterization With Stent Past Anesthesia/Blood Transfusion Reactions: No Reported Reaction Date of Last Stent Placement:: N/A Past Psychological History: No Psychological Hx Reported Smoking Status: Former smoker Past Alcohol Use History: Occasional Past Drug Use History: Marijuana - Past Family History Family Family Medical History: No Reported History General Exam Limitations: no limitations Course Vital Signs 01/15/22 01/15/22 13:51 16:06 Temperature 98.1 F Pulse Rate 82 80 Respiratory 18 18 Rate Blood Pressure 138/82 144/76 O2 Sat by Pulse 98 100 Oximetry Medical Decision Making - Lab Data Result diagrams: 01/15/22 14:28 01/15/22 14:28 Lab Results 01/15/22 01/15/22 01/15/22 Range/Units 14:23 14:28 14:28 WBC 8.0 (3.8-10.6) k/uL RBC 5.33 (4.30-5.90) m/uL Hgb 15.8 (13.0-17.5) gm/dL Hct 48.4 (39.0-53.0) % MCV 90.7 (80.0-100.0) fL MCH 29.6 (25.0-35.0) pg MCHC 32.6 (31.0-37.0) g/dL RDW 12.4 (11.5-15.5) % Plt Count 273 (150-450) k/uL MPV 7.7 Neutrophils % 65 % Lymphocytes % 27 % Monocytes % 4 % Eosinophils % 3 % Basophils % 1 % Neutrophils # 5.2 (1.3-7.7) k/uL Lymphocytes # 2.2 (1.0-4.8) k/uL Monocytes # 0.3 (0-1.0) k/uL Eosinophils # 0.2 (0-0.7) k/uL Basophils # 0.0 (0-0.2) k/uL Sodium 137 (137-145) mmol/L Potassium 4.2 (3.5-5.1) mmol/L Chloride 103 (98-107) mmol/L Carbon Dioxide 23 (22-30) mmol/L Anion Gap 11 mmol/L BUN 7 L (9-20) mg/dL Creatinine 0.61 L (0.66-1.25) mg/dL Est GFR (CKD-EPI)AfAm >90 (>60 ml/min/1.73 sqM) Est GFR (CKD-EPI)NonAf >90 (>60 ml/min/1.73 sqM) Glucose 214 H (74-99) mg/dL POC Glucose (mg/dL) 207 H (70-110) mg/dL POC Glu Paste Maker ID Waldemar Alvarado Calcium 9.5 (8.4-10.2) mg/dL Total Bilirubin 0.7 (0.2-1.3) mg/dL AST 28 (17-59) U/L ALT 26 (4-49) U/L Alkaline Phosphatase 60 (38-126) U/L Troponin I (0.000-0.034) ng/mL Total Protein 7.5 (6.3-8.2) g/dL Albumin 4.7 (3.5-5.0) g/dL Lipase 78 (23-300) U/L Influenza Type A (PCR) (Not Detectd) Influenza Type B (PCR) (Not Detectd) RSV (PCR) (Not Detectd) SARS-CoV-2 (PCR) (Not Detectd) 01/15/22 01/15/22 Range/Units 14:28 14:36 WBC (3.8-10.6) k/uL RBC (4.30-5.90) m/uL Hgb (13.0-17.5) gm/dL Hct (39.0-53.0) % MCV (80.0-100.0) fL MCH (25.0-35.0) pg MCHC (31.0-37.0) g/dL RDW (11.5-15.5) % Plt Count (150-450) k/uL MPV Neutrophils % % Lymphocytes % % Monocytes % % Eosinophils % % Basophils % % Neutrophils # (1.3-7.7) k/uL Lymphocytes # (1.0-4.8) k/uL Monocytes # (0-1.0) k/uL Eosinophils # (0-0.7) k/uL Basophils # (0-0.2) k/uL Sodium (137-145) mmol/L Potassium (3.5-5.1) mmol/L Chloride (98-107) mmol/L Carbon Dioxide (22-30) mmol/L Anion Gap mmol/L BUN (9-20) mg/dL Creatinine (0.66-1.25) mg/dL Est GFR (CKD-EPI)AfAm (>60 ml/min/1.73 sqM) Est GFR (CKD-EPI)NonAf (>60 ml/min/1.73 sqM) Glucose (74-99) mg/dL POC Glucose (mg/dL) (70-110) mg/dL POC Glu Paste Maker ID Calcium (8.4-10.2) mg/dL Total Bilirubin (0.2-1.3) mg/dL AST (17-59) U/L ALT (4-49) U/L Alkaline Phosphatase (38-126) U/L Troponin I <0.012 (0.000-0.034) ng/mL Total Protein (6.3-8.2) g/dL Albumin (3.5-5.0) g/dL Lipase (23-300) U/L Influenza Type A (PCR) Not Detected (Not Detectd) Influenza Type B (PCR) Not Detected (Not Detectd) RSV (PCR) Not Detected (Not Detectd) SARS-CoV-2 (PCR) Not Detected (Not Detectd) Disposition Clinical Impression: Nausea Disposition: HOME SELF-CARE Condition: Fair Instructions (If sedation given, give patient instructions): Dizziness (ED) Is patient prescribed a controlled substance at d/c from ED?: No Referrals: None,Stated [Primary Care Provider] - 1-2 days Time of Disposition: 17:08
[2022-01-15 14:31] LABS: Glucose,Whole Blood 207 mg/dL (70-110)
[2022-01-15 14:32] LABS: Basophils % (A) 1 %; Eosinophils # (A) 0.2 k/uL (0-0.7); Eosinophils % (A) 3 %; HCT 48.4 % (39.0-53.0); HGB 15.8 gm/dL (13.0-17.5); Lymphocytes # (A) 2.2 k/uL (1.0-4.8); Lymphocytes % (A) 27 %; MCH 29.6 pg (25.0-35.0); MCHC 32.6 g/dL (31.0-37.0); MCV 90.7 fL (80.0-100.0); Mean Platelet Volume 7.7; Monocytes # (A) 0.3 k/uL (0-1.0); Monocytes % (A) 4 %; Neutrophils # (A) 5.2 k/uL (1.3-7.7); Neutrophils % (A) 65 %; Platelet Count 273 k/uL (150-450); RBC 5.33 m/uL (4.30-5.90); RDW 12.4 % (11.5-15.5)
[2022-01-15 14:42] LABS: ALT 26 U/L (4-49); AST 28 U/L (17-59); African American GFR (CKD) >90 (>60 ml/min/1.73 sqM); Albumin 4.7 g/dL (3.5-5.0); Alkaline Phosphatase 60 U/L (38-126); Anion Gap 11 mmol/L; Blood Urea Nitrogen 7 mg/dL (9-20); Calcium 9.5 mg/dL (8.4-10.2); Carbon Dioxide 23 mmol/L (22-30); Chloride 103 mmol/L (98-107); Glucose 214 mg/dL (74-99); Lipase 78 U/L (23-300); Non-African American GFR(CKD) >90 (>60 ml/min/1.73 sqM); Potassium 4.2 mmol/L (3.5-5.1); Sodium 137 mmol/L (137-145); Total Bilirubin 0.7 mg/dL (0.2-1.3); Total Protein 7.5 g/dL (6.3-8.2)
--- NOTE | 2022-01-15 16:08 | XR ---
EXAMINATION TYPE: XR abdomen acute w cxr DATE OF EXAM: 01/15/2022 COMPARISON: Chest x-ray 12/28/2021 HISTORY: Dizziness. Nausea TECHNIQUE: 4 views FINDINGS: Heart and mediastinum are normal. Lungs are clear. Diaphragm is normal. Bony thorax is inta ct. No pathologic calcifications. Lung bases are clear. Bowel gas pattern is normal. No sign of intestinal obstruction or pneumoperitoneum. Fecal pattern is normal. IMPRESSION: Nonacute abdomen. Normal chest. Chest appears stable compared to old exam.
--- NOTE | 2022-01-15 16:56 | CT ---
EXAMINATION TYPE: CT brain wo con DATE OF EXAM: 01/15/2022 COMPARISON: 08/31/2013 HISTORY: Acute headache, vomiting. Denies injury. Pt not able to remove ear piercings. CT DLP: 1174.4 mGycm Automated exposure control for dose reduction was used. Ventricles of normal size. There is no mass effect or midline shift. No sign of intracranial hemorrha ge. Calvarium is intact. IMPRESSION: Normal CT scan of the brain. No change.
[2022-01-15 17:34] VITALS: BP 146/82; PULSE 91; TEMP 97.9
== END 2022-01-15 17:32 | disposition home or self-care (01) ==
LOC: EC 13:47
DX: R11.2 Nausea with vomiting, unspecified (principal); Z87.891 Personal history of nicotine dependence; I25.2 Old myocardial infarction; Z20.822 Contact with and (suspected) exposure to COVID-19
CPT/HCPCS: 36415; 93005; 80053; 83690; 84484; 85025; 87636; 74022; 70450; 99285; 96374; 96375; 96361; J1200; J2405; J1885

== ENCOUNTER 2022-07-12 03:23 | Inpatient (IN) | payer MEDICAID, OTHER ==
[2022-07-12] MEDS ORDERED: MAGNESIUM HYDROXIDE 2,400 MG/10 ML CUP PO PRN (03:45)
[2022-07-12] MEDS ORDERED: HALOPERIDOL LACTATE 5 MG/ML 1 ML VIAL IM PRN (03:45)
[2022-07-12] MEDS ORDERED: MAG HYDROX/AL HYDROX/SIMETH 30 ML CUP PO PRN (03:45)
[2022-07-12] MEDS ORDERED: ACETAMINOPHEN TAB 325 MG TAB PO PRN (03:45)
[2022-07-12] MEDS ORDERED: LORazepam 2 MG/ML INJ IM PRN (03:53)
[2022-07-12] MEDS ORDERED: haloperidoL 5 MG TAB PO PRN (03:54)
[2022-07-12] MEDS: HYDROcodone/APAP 5-325MG 1 EACH TAB PO PRN ×3 (05:40→23:21)
[2022-07-12] MEDS: LORazepam 1 MG TAB PO PRN ×2 (05:41→22:00)
[2022-07-12] MEDS ORDERED: INSULIN ASPART (NovoLOG) 100 UNIT/ML VIAL SQ SCH (07:30)
[2022-07-12] MEDS: ATORVASTATIN 40 MG TAB PO SCH (09:53)
[2022-07-12] MEDS: ASPIRIN 81 MG PO SCH (09:53)
[2022-07-12] MEDS: NICOTINE 14MG/24HR PATCH TRANSDERM SCH (09:53)
[2022-07-12] MEDS: DULoxetine HCL 30 MG CAPSULE.DR PO SCH (11:51)
[2022-07-12 12:55] LABS: Glucose,Whole Blood 133 mg/dL (70-110)
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
[2022-07-12 17:38] LABS: Glucose,Whole Blood 116 mg/dL (70-110)
[2022-07-12 20:20] LABS: Glucose,Whole Blood 143 mg/dL (70-110)
[2022-07-12] MEDS ORDERED: traZODone HCL 50 MG TAB PO SCH (21:00)
[2022-07-12] MEDS: INSULIN DETEMIR (LEVEMIR) 100 UNIT/ML SYR SQ SCH (21:11)
[2022-07-13 07:44] LABS: Glucose,Whole Blood 115 mg/dL (70-110)
[2022-07-13] MEDS: NICOTINE 14MG/24HR PATCH TRANSDERM SCH (08:22)
[2022-07-13] MEDS: DULoxetine HCL 30 MG CAPSULE.DR PO SCH (08:22)
[2022-07-13] MEDS: ASPIRIN 81 MG PO SCH (08:22)
[2022-07-13] MEDS: ATORVASTATIN 40 MG TAB PO SCH (08:22)
[2022-07-13] MEDS: HYDROcodone/APAP 5-325MG 1 EACH TAB PO PRN (08:23)
[2022-07-13] MEDS ORDERED: LORazepam 0.5 MG TAB PO PRN (10:19)
--- NOTE | 2022-07-13 10:19 | P.PN ---
Progress Note - Text Progress Note Date: 07/13/22 Interval History: Patient was seen lying in bed this morning and was directable and agreeable to speak with advertising copywriter. Patient states that he did not sleep well last night he needs to take an Ativan. He claims that the trazodone made him feel restless. We spoke about other options for medications. Patient also states that he continues to feel depressed and hopeless. He claims that he has not been interacting much. He was complaining about his pain medications and states that he takes [place] tens prescribed by his doctor. He claims that he is still having anxiety at this time. She was less preoccupied with his suicidal thoughts today. He claims that his appetite is mildly improving. At this time patient denies any homical ideations, intent or plan. Patient denies any auditory, visual hallucinations and denies any paranoia or delusions. Patient denies any side effects from the medications and has been compliant with meds. Mental Status Exam: General Appearance: Patient appears to be mildly overweight, short hair, sol, stated age is alert, irritable. Patient appears to have poor hygiene and grooming. Behavior: Patient is seated without any agitated behavior. less Argumentative. Speech: Patient's speech is fluent and nonpressured. concrete Mood/Affect: Patient reports their mood is depressed, affect is congruent and constricted. Suicidality/Homicidality: Patient denies having any homicidal ideation intent, admits to suicidal thoughts, no plan or intent, improving mildly Perceptions: Patient denies any visual hallucinations and denies any auditory hallucinations Though content/process: There is no evidence of any delusional thought content and thought process is linear and goal-directed. Focused on stressors. hopelessness Memory and concentration: AOX3, grossly intact for the purposes of this session Judgment and insight: poor, improving mildly IMPRESSIONS: Major depressive disorder, without psychotic features Cannabis use disorder Homelessness Plan: -Patient continues to meet criteria for inpatient psychiatric admission for symptom stabilization and safety. Patient has signed adult voluntary form and medication consent and was placed in patient's chart. -Medications: increase Cymbalta 30 mg daily for mood/anxiety, d/c trazodone. start remeron 15 mg qhs insomnia/mood/appetite. checked [facility] for patients request to have his norcos increased, it appears that patient is receiving this med as an outpatient however getting it perscribed by different doctors. at this time will do 7.5 mg q8hr prn for pain -When necessary Ativan and Haldol for agitation/aggression. -NRT - nicotine patch -SW on board for discharge planning. Encouraged the patient to participate in milieu. likely discharge in 1-2 days, will likely refer to [facility]
[2022-07-13] MEDS: buPROPion XL 150 MG TAB.ER.24H PO SCH (12:20)
[2022-07-13 12:22] LABS: Glucose,Whole Blood 148 mg/dL (70-110)
[2022-07-13 14:39] LABS: Basophils # (A) 0.1 k/uL (0-0.2); Basophils % (A) 1 %; Eosinophils # (A) 0.2 k/uL (0-0.7); Eosinophils % (A) 3 %; HGB 14.9 gm/dL (13.0-17.5); Lymphocytes % (A) 29 %; MCH 30.4 pg (25.0-35.0); MCHC 34.6 g/dL (31.0-37.0); MCV 87.9 fL (80.0-100.0); Mean Platelet Volume 8.2; Monocytes # (A) 0.3 k/uL (0-1.0); Monocytes % (A) 4 %; Neutrophils # (A) 4.4 k/uL (1.3-7.7); Neutrophils % (A) 62 %; Platelet Count 197 k/uL (150-450); RDW 12.9 % (11.5-15.5)
[2022-07-13 14:45] LABS: ALT 27 U/L (4-49); AST 21 U/L (17-59); African American GFR (CKD) >90 (>60 ml/min/1.73 sqM); Albumin 4.2 g/dL (3.5-5.0); Alkaline Phosphatase 44 U/L (38-126); Anion Gap 7 mmol/L; Bilirubin, Delta 0.2 mg/dL (0.0-0.2); Bilirubin,Unconjugated 0.6 mg/dL (0.0-1.1); Blood Urea Nitrogen 9 mg/dL (9-20); Calcium 9.1 mg/dL (8.4-10.2); Carbon Dioxide 25 mmol/L (22-30); Chloride 104 mmol/L (98-107); Glucose 180 mg/dL (74-99); Non-African American GFR(CKD) >90 (>60 ml/min/1.73 sqM); Sodium 136 mmol/L (137-145); Total Bilirubin 0.8 mg/dL (0.2-1.3); Total Protein 6.8 g/dL (6.3-8.2)
[2022-07-13 17:29] LABS: Glucose,Whole Blood 102 mg/dL (70-110)
[2022-07-13 20:06] LABS: Glucose,Whole Blood 154 mg/dL (70-110)
[2022-07-13] MEDS: INSULIN DETEMIR (LEVEMIR) 100 UNIT/ML SYR SQ SCH (20:06)
[2022-07-13] MEDS: MIRTAZAPINE 15 MG TAB PO SCH (20:07)
[2022-07-13] MEDS: DULoxetine HCL 60 MG CAPSULE.DR PO SCH (20:07)
[2022-07-13] MEDS: HYDROcodone/APAP 7.5-325MG 1 EACH TAB PO PRN (20:11)
[2022-07-13] MEDS ORDERED: traZODone HCL 50 MG TAB PO SCH (21:00)
[2022-07-14 00:35] LABS: Chol/HDL Ratio 6.97 Ratio; LDL Cholesterol,Calculated 188.1 mg/dL (0.0-131.0)
--- NOTE | 2022-07-14 03:19 | CONS ---
CONSULTATION CHIEF COMPLAINT: Major depression with suicidal thoughts. HISTORY OF PRESENT ILLNESS: This gentleman states that he feels like his life is caving in, that everything is working against him. He became very depressed and started to have suicidal thoughts and came to emergency room. REVIEW OF SYSTEMS: Negative. He does not have any other symptoms. Past medical history, family history, personal and social histories reveal that he has a history of diabetes mellitus and coronary artery disease. He is on Levemir and NovoLog. He takes Lipitor, aspirin, and Isordil. PHYSICAL EXAMINATION: VITAL SIGNS: Blood pressure is 132/84 with a pulse of 73, respirations of 19, he is afebrile. GENERAL: He appeared to be well developed, well nourished, in no acute distress. SKIN: Color is normal. Skin is warm and dry. HEAD, EARS, EYES, NOSE, MOUTH, AND THROAT: Normal. CHEST: Clear. CARDIAC: Normal. ABDOMEN: Soft, nontender. EXTREMITIES: Normal. NEUROLOGICAL: He is intact. He was quite tearful. IMPRESSION: 1. Major depression with suicidal thoughts. 2. Diabetes mellitus. 3. History of angina pectoris. RECOMMENDATIONS: None at this time. Thank you respectfully, MMODL / IJN: [id number] /
[2022-07-14 06:58] VITALS: RESP 14
[2022-07-14 07:59] LABS: Glucose,Whole Blood 102 mg/dL (70-110)
[2022-07-14] MEDS: NICOTINE 14MG/24HR PATCH TRANSDERM SCH (08:35)
[2022-07-14] MEDS: HYDROcodone/APAP 7.5-325MG 1 EACH TAB PO PRN ×2 (08:35→20:33)
[2022-07-14] MEDS: buPROPion XL 150 MG TAB.ER.24H PO SCH (08:35)
[2022-07-14] MEDS: ATORVASTATIN 40 MG TAB PO SCH (08:35)
[2022-07-14] MEDS: ASPIRIN 81 MG PO SCH (08:35)
[2022-07-14] MEDS ORDERED: DULoxetine HCL 60 MG CAPSULE.DR PO SCH (09:00)
--- NOTE | 2022-07-14 10:12 | P.PN ---
Progress Note - Text Progress Note Date: 07/14/22 Interval History: Patient was seen lying in bed this morning and was directable and agreeable to speak with journalists and other writers. Patient appears to be more awake today and was agreeable to speak to journalists and other writers. He claims that he feels a bit better with regards to his mood. He claims that the Wellbutrin has been helping and wanted to be increased to 300 mg. He states that he was able to sleep fairly well until his roommate came in last night. He claims that he will possibly be ready for discharge tomorrow. He claims that he is not interested in going to many groups as it causes too much anxiety for him. States that he is been up for meals, not complaining of pain today. At this time patient denies any homical ideations, intent or plan. Patient denies any auditory, visual hallucinations and denies any paranoia or delusions. Patient denies any side effects from the medications and has been compliant with meds. Mental Status Exam: General Appearance: Patient appears to be mildly overweight, short hair, sol, stated age is alert, irritable. Patient appears to have improving hygiene and grooming. Behavior: Patient is seated without any agitated behavior. Speech: Patient's speech is fluent and nonpressured. Mood/Affect: Patient reports their mood is improving, affect is congruent and constricted. Suicidality/Homicidality: Patient denies having any homicidal ideation intent, denies any suicidal thoughts, no plan or intent, improving mildly Perceptions: Patient denies any visual hallucinations and denies any auditory hallucinations Though content/process: There is no evidence of any delusional thought content and thought process is linear and goal-directed. Memory and concentration: AOX3, grossly intact for the purposes of this session Judgment and insight: improving mildly IMPRESSIONS: Major depressive disorder, without psychotic features Cannabis use disorder Homelessness Plan: -Patient continues to meet criteria for inpatient psychiatric admission for symptom stabilization and safety. Patient has signed adult voluntary form and medication consent and was placed in patient's chart. -Medications: Cymbalta 30 mg daily for mood/anxiety, continue remeron 15 mg qhs insomnia/mood/appetite. increased wellbutrin to 300 mg daily for mood. -When necessary Ativan and Haldol for agitation/aggression. -NRT - nicotine patch -SW on board for discharge planning. Encouraged the patient to participate in milieu. likely discharge tomorrow to girlfriends house.
[2022-07-14] MEDS: CLOPIDOGREL 75 MG TAB PO SCH (10:18)
[2022-07-14] MEDS: DAPAGLIFLOZIN PROPANEDIOL 10 MG TABLET PO SCH (10:20)
[2022-07-14 12:42] LABS: Glucose,Whole Blood 102 mg/dL (70-110)
[2022-07-14 19:59] LABS: Glucose,Whole Blood 187 mg/dL (70-110)
[2022-07-14] MEDS: MIRTAZAPINE 15 MG TAB PO SCH (20:30)
[2022-07-14] MEDS: DULoxetine HCL 60 MG CAPSULE.DR PO SCH (20:30)
[2022-07-14] MEDS: INSULIN DETEMIR (LEVEMIR) 100 UNIT/ML SYR SQ SCH (20:30)
[2022-07-15 07:15] VITALS: BP 127/63; PULSE 72; TEMP 97.6
[2022-07-15 07:47] LABS: Glucose,Whole Blood 116 mg/dL (70-110)
[2022-07-15] MEDS: HYDROcodone/APAP 7.5-325MG 1 EACH TAB PO PRN (08:30)
[2022-07-15] MEDS: ASPIRIN 81 MG PO SCH (08:31)
[2022-07-15] MEDS: CLOPIDOGREL 75 MG TAB PO SCH (08:31)
[2022-07-15] MEDS: ATORVASTATIN 40 MG TAB PO SCH (08:31)
[2022-07-15] MEDS: DAPAGLIFLOZIN PROPANEDIOL 10 MG TABLET PO SCH (08:33)
[2022-07-15] MEDS: NICOTINE 14MG/24HR PATCH TRANSDERM SCH (08:33)
[2022-07-15] MEDS ORDERED: buPROPion XL 300 MG TAB.ER.24H PO SCH (09:00)
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
== END 2022-07-15 12:34 | disposition home or self-care (01) | DRG 881 ==
LOC: PREOBSVTOIN 05:02 → 3MHU 05:03
PROVIDERS: ADMIT Psychiatry & Neurology Psychiatry; ATTEND Psychiatry & Neurology Psychiatry
DX: F32.9 Major depressive disorder, single episode, unspecified (principal); R45.851 Suicidal ideations; E11.9 Type 2 diabetes mellitus without complications; F12.90 Cannabis use, unspecified, uncomplicated; F17.200 Nicotine dependence, unspecified, uncomplicated; F41.9 Anxiety disorder, unspecified; G47.00 Insomnia, unspecified; Z56.0 Unemployment, unspecified; Z59.00 Homelessness unspecified; Z79.899 Other long term (current) drug therapy
CPT/HCPCS: 80053; 80061; 80076; 83036; 84443; 85025

== ENCOUNTER 2022-10-22 12:02 | Emergency (ER) | payer OTHER ==
[2022-10-22] MEDS ORDERED: SODIUM CHLORIDE 0.9% 1,000 ML IV STA (12:33)
[2022-10-22] MEDS ORDERED: ONDANSETRON 4 MG/2 ML VIAL IVP STA (12:33)
[2022-10-22] MEDS ORDERED: MORPHINE SULFATE 4 MG/ML SYRINGE IV STA (12:34)
--- NOTE | 2022-10-22 12:40 | ED ---
General Adult HPI - General Chief complaint: Abdominal Pain Stated complaint: abd pain vomiting Time Seen by Provider: 10/22/22 12:17 Source: patient Mode of arrival: ambulatory Limitations: no limitations - History of Present Illness Initial comments: Dictation was produced using [employer] dictation software. please excuse any grammatical, word or spelling errors. Chief Complaint: 37-year-old male with multiple comorbidities presents to the ER for bilious vomiting and epigastric pain History of Present Illness: She 37-year-old male woke up with severe abdominal pain. Patient states that the pain is in his epigastrium. He has been having bouts of bilious vomiting. States that he has been having shaking chills. Patient has history of diabetes, coronary artery disease. He has had myocardial infarction in the past. Denies any cough or shortness of breath. Denies any diarrhea. Patient consumes marijuana on a daily basis however denies having had any marijuana today. He's never been evaluated for gastrioparesis in the past. States that his diabetes is controlled. States that his vomiting is so violent that started to become bloody. Patient states he vomited at least 4 times of clear describes as dark blood. Denies any black or bloody stools. Patient does not take any anticoagulation medications. Patient states that he's been episodes of GI bleed and been more frequent over the recent past. The ROS documented in this emergency department record has been reviewed and confirmed by me. Those systems with pertinent positive or negative responses have been documented in the HPI. All other systems are other negative and/or noncontributory. - Related Data Home Medications Medication Instructions Recorded Confirmed Clopidogrel [Plavix] 75 mg PO DAILY 07/14/22 08/15/22 Empagliflozin [Jardiance] 25 mg PO DAILY 07/14/22 08/15/22 Atorvastatin Calcium [Lipitor] 80 mg PO DAILY 08/15/22 08/15/22 Cyclobenzaprine [Flexeril] 10 mg PO TID PRN 08/15/22 08/15/22 Dulaglutide [Trulicity] 1.5 mg SQ Q7D 08/15/22 08/15/22 HYDROcodone/APAP 10-325MG [Lamar 1 tab PO Q6HR PRN 08/15/22 08/15/22 10-325] Insulin Glargine,Hum.rec.anlog 20 units SQ HS 08/15/22 08/15/22 [Lantus Solostar Pen] Previous Rx's Medication Instructions Recorded Aspirin 81 mg PO DAILY 30 Days #30 tab 12/30/21 Insulin Aspart 12 units SQ AC-TID #100 ml 12/30/21 Isosorbide Mononitrate ER [Imdur] 30 mg PO DAILY 30 Days #30 tab 12/30/21 Mirtazapine [Remeron] 15 mg PO HS 15 Days #15 tab 08/19/22 Nicotine 14Mg/24Hr Patch [Habitrol] 1 patch TRANSDERM DAILY 15 Days 08/19/22 #15 patch QUEtiapine [SEROquel] 200 mg PO HS 15 Days #15 tab 08/19/22 buPROPion XL [Wellbutrin XL] 300 mg PO DAILY 15 Days #15 tab 08/19/22 Allergies Allergy/AdvReac Type Severity Reaction Status Date / Time No Known Allergies Allergy Verified 08/15/22 15:14 Review of Systems ROS Statement: Those systems with pertinent positive or pertinent negative responses have been documented in the HPI. ROS Other: All systems not noted in ROS Statement are negative. Past Medical History Past Medical History: Myocardial Infarction (MO), Osteoarthritis (OA) Additional Past Medical History / Comment(s): DDD, Last Myocardial Infarction Date:: N/A History of Any Multi-Drug Resistant Organisms: None Reported Past Surgical History: Heart Catheterization With Stent Past Anesthesia/Blood Transfusion Reactions: No Reported Reaction Date of Last Stent Placement:: N/A Past Psychological History: No Psychological Hx Reported Smoking Status: Former smoker Past Alcohol Use History: Occasional Past Drug Use History: Marijuana - Past Family History Family Family Medical History: No Reported History General Exam - General Exam Comments Initial Comments: PHYSICAL EXAM: General Impression: Alert and oriented x3, acute distress secondary to nausea HEENT: Normocephalic atraumatic, extra-ocular movements intact, pupils equal and reactive to light bilaterally, mucous membranes moist. Cardiovascular: Heart regular rate and rhythm Chest: Able to complete full sentences, no retractions, no tachypnea Abdomen: abdomen soft, mild diffuse tenderness, non-distended, no organomegaly, negative Pope sign, no pain at McBurney's point and no pulsatile abdominal mass Musculoskeletal: Pulses present and equal in all extremities, no peripheral edema Motor: no focal deficits noted Neurological: CN II-XII grossly intact, no focal motor or sensory deficits noted Skin: Intact with no visualized rashes Psych: Normal affect and mood Limitations: no limitations Course Vital Signs 10/22/22 12:09 Temperature 97.8 F Pulse Rate 90 Respiratory 20 Rate Blood Pressure 140/90 O2 Sat by Pulse 98 Oximetry EKG Findings - EKG Comments: EKG Findings:: My EKG interpretation: Ventricular rate 79, sinus rhythm,. 157, QRS 90, QTC 4:30. No TN prolongation, no QTC prolongation, no ST or T-wave changes noted. EKG compared to 01/15/2022 showing no changes. Overall, this EKG is unremarkable Medical Decision Making - Medical Decision Making Was pt. sent in by a medical professional or institution (, PA, PHARM TECH, urgent ca re, hospital, or assisted...) When possible be specific @ -No Did you speak to anyone other than the patient for history (EMS, parent, family, police, friend...)? What history was obtained from this source @ -No Did you review nursing and triage notes (agree or disagree)? Why? @ -I reviewed and agree with nursing and triage notes Were old charts reviewed (outside hosp., previous admission, EMS record, old EKG, old radiological studies, urgent care reports/EKG's, assisted records)? Report findings @ -No old charts were reviewed Differential Diagnosis (chest pain, altered mental status, abdominal pain women, abdominal pain men, vaginal bleeding, musculoskeletal, weakness, fever, dyspnea, syncope, headache, dizziness, GI bleed, back pain, seizure, CVA, palpatations, mental health)? @ -Differential GI Bleed: Esophageal varices, aortoenteric fistula, Candy-Esteban, gastritis, peptic ulcer disease, diverticulosis, inflammatory bowel disease, hemorrhoids, fissure, colitis, malignancy, Meckels diverticulum, this is not meant to be an all- inclusive list. EKG interpreted by me (3pts min.). @ -None done X-rays interpreted by me (1pt min.). @ -Nonobstructive bowel gas pattern CT interpreted by me (1pt min.). @ -None done U/S interpreted by me (1pt. min.). @ -None done What testing was considered but not performed or refused? (CT, X-rays, U/S, labs)? Why? @ -None What meds were considered but not given or refused? Why? @ -None Did you discuss the management of the patient with other professionals (professionals i.e. , PA, PHARM TECH, lab, RT, psych nurse, social science analyst, back padder, teacher, aoc director intelligence officer, director of casework department)? Give summary @ -Discussed with [facility]up[facility] Cope for transfer. Was smoking cessation discussed for >3mins.? @ -No Was critical care preformed (if so, how long)? @ -No Were there social determinants of health that impacted care today? How? (Homelessness, low income, unemployed, alcoholism, drug addiction, transportation, low edu. Level, literacy, decrease access to med. care, long-term, rehab)? @ -No Was there de-escalation of care discussed even if they declined (Discuss DNR or withdrawal of care, Hospice)? DNR status @ -No What co-morbidities impacted this encounter? (DM, HTN, Smoking, COPD, CAD, Cancer, CVA, ARF, Chemo, Hep., AIDS, mental health diagnosis, sleep apnea, morbid obesity)? @ -Multiple comorbidities relative for a 37-year-old Was patient admitted / discharged? Hospital course, mention meds given and route, prescriptions, significant lab abnormalities, going to OR and other pertinent info. @ -37-year-old male presents emergency department with severe nausea, vomiting and coffee-ground emesis. Patient's symptoms likely Boerhaave's however he does have comorbidities making peptic ulcer disease versus gastritis possible diagnosis. Disposition options were discussed. Did not fill comfortable going home because he's been having progressive symptoms. Does not feel safe being discharged and following up with gastroenterology as an outpatient. Accepting physician is Dr. Barone. Patient abdominal pain is significantly improved with morphine and Zofran. Undiagnosed new problem with uncertain prognosis? @ -No Drug Therapy requiring intensive monitoring for toxicity (Heparin, Nitro, Insulin, Cardizem)? @ -No Were any procedures done? @ -No Diagnosis/symptom? Acute, or Chronic, or Acute on Chronic? Uncomplicated (without systemic symptoms) or Complicated (systemic symptoms)? @ -1. Nausea vomiting, no obvious source, 2. GI bleed Side effects of treatment? @ -No Exacerbation, Progression, or Severe Exacerbation? @ -No Poses a threat to life or bodily function? How? (Chest pain, USA, MO, pneumonia, PE, COPD, DKA, ARF, appy, cholecystitis, CVA, Diverticulitis, Homicidal, Suicidal, threat to staff... and all critical care pts) @ -yes - Lab Data Result diagrams: 10/22/22 12:26 10/22/22 12: Lab Results 10/22/22 10/22/22 10/22/22 Range/Units 12: 12: 12: WBC 9.6 (3.8-10.6) k/uL RBC 5.75 (4.30-5.90) m/uL Hgb 17.8 H (13.0-17.5) gm/dL Hct 52.6 (39.0-53.0) % MCV 91.4 (80.0-100.0) fL MCH 31.0 (25.0-35.0) pg MCHC 33.9 (31.0-37.0) g/dL RDW 12.3 (11.5-15.5) % Plt Count 220 (150-450) k/uL MPV 7.6 Neutrophils % 74 % Lymphocytes % 19 % Monocytes % 4 % Eosinophils % 2 % Basophils % 0 % Neutrophils # 7.1 (1.3-7.7) k/uL Lymphocytes # 1.8 (1.0-4.8) k/uL Monocytes # 0.4 (0-1.0) k/uL Eosinophils # 0.1 (0-0.7) k/uL Basophils # 0.0 (0-0.2) k/uL Sodium 140 (137-145) mmol/L Potassium 4.1 (3.5-5.1) mmol/L Chloride 103 (98-107) mmol/L Carbon Dioxide 28 (22-30) mmol/L Anion Gap 9 mmol/L BUN 7 L (9-20) mg/dL Creatinine 0.63 L (0.66-1.25) mg/dL Est GFR (CKD-EPI)AfAm >90 (>60 ml/min/1.73 sqM) Est GFR (CKD-EPI)NonAf >90 (>60 ml/min/1.73 sqM) Glucose 138 H (74-99) mg/dL Calcium 10.1 (8.4-10.2) mg/dL Total Bilirubin 0.9 (0.2-1.3) mg/dL Conjugated Bilirubin 0.0 (0.0-0.3) mg/dL Unconjugated Bilirubin 0.6 (0.0-1.1) mg/dL Delta Bilirubin 0.3 H (0.0-0.2) mg/dL AST 23 (17-59) U/L ALT 30 (4-49) U/L Alkaline Phosphatase 65 (38-126) U/L Troponin I <0.012 (0.000-0.034) ng/mL Total Protein 7.6 (6.3-8.2) g/dL Albumin 4.8 (3.5-5.0) g/dL Lipase 193 (23-300) U/L Disposition Clinical Impression: GI bleed Disposition: OTHER INSTITUTION NOT DEFINED Referrals: Brady Conroy MD [Primary Care Provider] - 1-2 days Time of Disposition: 14:00 - Out of Hospital Transfer - Req. Specs Out of Hospital Transfer - Requested Specifics: Other Emergency Center ([facility])
[2022-10-22 12:54] LABS: AST 23 U/L (17-59); African American GFR (CKD) >90 (>60 ml/min/1.73 sqM); Chloride 103 mmol/L (98-107); Non-African American GFR(CKD) >90 (>60 ml/min/1.73 sqM)
[2022-10-22 12:55] LABS: Blood Urea Nitrogen 7 mg/dL (9-20)
[2022-10-22 13:13] LABS: Basophils % (A) 0 %; Eosinophils # (A) 0.1 k/uL (0-0.7); Eosinophils % (A) 2 %; HCT 52.6 % (39.0-53.0); HGB 17.8 gm/dL (13.0-17.5); Lymphocytes # (A) 1.8 k/uL (1.0-4.8); Lymphocytes % (A) 19 %; MCHC 33.9 g/dL (31.0-37.0); MCV 91.4 fL (80.0-100.0); Mean Platelet Volume 7.6; Monocytes # (A) 0.4 k/uL (0-1.0); Monocytes % (A) 4 %; Neutrophils # (A) 7.1 k/uL (1.3-7.7); Neutrophils % (A) 74 %; Platelet Count 220 k/uL (150-450); RBC 5.75 m/uL (4.30-5.90); RDW 12.3 % (11.5-15.5); WBC 9.6 k/uL (3.8-10.6)
[2022-10-22 13:35] LABS: ALT 30 U/L (4-49); Albumin 4.8 g/dL (3.5-5.0); Alkaline Phosphatase 65 U/L (38-126); Anion Gap 9 mmol/L; Bilirubin, Delta 0.3 mg/dL (0.0-0.2); Bilirubin,Unconjugated 0.6 mg/dL (0.0-1.1); Calcium 10.1 mg/dL (8.4-10.2); Carbon Dioxide 28 mmol/L (22-30); Glucose 138 mg/dL (74-99); Lipase 193 U/L (23-300); Potassium 4.1 mmol/L (3.5-5.1); Sodium 140 mmol/L (137-145); Total Bilirubin 0.9 mg/dL (0.2-1.3); Total Protein 7.6 g/dL (6.3-8.2)
--- NOTE | 2022-10-22 13:51 | XR ---
EXAMINATION TYPE: XR abdomen 1V DATE OF EXAM: 10/22/2022 COMPARISON: NONE HISTORY: Pain TECHNIQUE: Single supine KUB image of the abdomen is obtained FINDINGS: Small bowel demonstrates no evidence for dilatation or air fluid levels. Gas and fecal material is seen in non-distended colon. No convincing evidence for pneumoperitoneum. No unusual calcifications. The lung bases are clear. The osseous structures are intact. IMPRESSION: 1. Overall nonobstructive bowel gas pattern.
[2022-10-22] MEDS ORDERED: PANTOPRAZOLE 40 MG/10 ML VIAL IVP STA (14:03)
[2022-10-22 14:43] VITALS: BP 123/72; PULSE 84; RESP 16; TEMP 98.9
== END 2022-10-22 14:53 | disposition other institution (70) ==
LOC: EC 12:02
DX: K92.2 Gastrointestinal hemorrhage, unspecified (principal); I25.2 Old myocardial infarction; I25.10 Atherosclerotic heart disease of native coronary artery without angina pectoris; E11.9 Type 2 diabetes mellitus without complications; M19.90 Unspecified osteoarthritis, unspecified site; F12.90 Cannabis use, unspecified, uncomplicated; Z79.1 Long term (current) use of non-steroidal anti-inflammatories (NSAID); Z79.02 Long term (current) use of antithrombotics/antiplatelets; Z87.891 Personal history of nicotine dependence; Z79.84 Long term (current) use of oral hypoglycemic drugs; Z79.4 Long term (current) use of insulin
CPT/HCPCS: 36415; 93005; 80053; 82248; 83690; 84484; 85025; 74018; 99285; 96374; 96375 ×2; 96361 ×2; J2270; J2405; C9113